=== PATIENT | male | born 1980 | race Caucasian/White ===

== ENCOUNTER 2024-05-24 12:49 | Emergency (ER) | payer BC, SELFPAY ==
[2024-05-24 13:20] VITALS: BP 134/85; PULSE 82; RESP 18; TEMP 36.6; O2SAT 98
--- NOTE | 2024-05-24 14:55 | ED.WOUNDLAC ---
HPI - Wound/Laceration General Chief Complaint: Wound/Laceration Stated Complaint: R middle finger lac Time Seen by Provider: 05/24/24 14:55 Focused HPI: This is a 44 year old male that presents to the ER for laceration to the left third finger at work. Reports bleeding and pain to the area. Unsure of last tetanus vaccine. Denies decreased ROM or numbness. GENERAL: Well-appearing, well-nourished, and in no acute distress. HEAD: Normocephalic, atraumatic. CHEST: Clear to auscultation. ?No respiratory distress. HEART: Regular rate and rhythm.? NEURO: ?Alert and oriented x3. Patient screened in triage and initial orders placed.? ?Additional care and disposition to be based upon?diagnostic testing and treatment. Review of Systems Review of Systems: All systems reviewed & are unremarkable except as noted in HPI and below Constitutional: Constitutional: Denies fever(s) Integumentary/Breasts: Comments: Reports laceration PMFSH Past Medical History Medical History (Updated 05/24/24 @ 15:10 by Tara Le PA-C) No active medical problems Social History Social History (Updated 05/24/24 @ 15:05 by Tara Le PA-C) Smoking status: Current every day smoker Exam Const: General: healthy appearing and no acute distress Skin: General skin exam: normal color Rashes: no rashes Wounds: wounds noted (Superficial abrasion to the left third finger) Extrem: Other: Normal ROM Course Course Emergency Course: Patient educated on further wound care Vital Signs Vital signs: Vital Signs Temperature 97.8 F 05/24/24 13:20 Pulse Rate 82 05/24/24 13:20 Respiratory Rate 18 05/24/24 13:20 Blood Pressure 134/85 05/24/24 13:20 Pulse Oximetry 98 05/24/24 13:20 Oxygen Delivery Room Air 05/24/24 13:20 Temperature 97.8 F 05/24/24 13:20 Pulse Rate 82 05/24/24 13:20 Respiratory Rate 18 05/24/24 13:20 Blood Pressure 134/85 05/24/24 13:20 Pulse Oximetry 98 05/24/24 13:20 Oxygen Delivery Room Air 05/24/24 13:20 Procedures Laceration Laceration 1: Date: 05/24/24 Time: 15:06 Site: hand Side (If applicable): left Size (cm): 0.5 Description: linear Depth: simple, single layer Pre-repair: irrigated ====== Skin Level ====== Skin layer closed with: steri strips ====== Subcutaneous Layer ====== ====== Muscle Layer ====== ====== Tendon Layer ====== Dressing: superficial laceration covered with steri strips and a bandage MDM - Wound/Laceration MDM Narrative Medical decision making narrative: Patient presents to the ER for superficial abrasion to the left third finger. Neurovascularly intact. Wound was cleansed and closed with steri strips. Updated on tetanus. Instructed on further wound care. He is to follow up with PCP as needed. Given warnings to return to the ER Differential Diagnosis Differential diagnosis: Likely laceration, abrasion and avulsion of skin Critical Care Time Critical Care Time Critical Care Time: No Discharge Plan Discharge Clinical Impression: Laceration Patient Disposition: Home, Self-Care Condition: Stable Instructions: Laceration (ED), Steristrips (ED) Additional Instructions: Return to the ER if you experience fever, redness and swelling of your finger, abnormal drainage, or any other symptoms that are concerning to you Let the water run over the wound in the shower. When steri strips falls off clean the area with soap and water daily and apply antibiotic ointment Follow up with your primary doctor for wound check if needed Follow-up/Referrals: PHYSICIAN NOT ON STAFF,NONSTAFF [Primary Care Provider] -
[2024-05-24] MEDS: TETANUS,DIPHTHERIA,AC PERTUSSIS ADULT (0.5 ML) BOOSTRIX IM (15:20)
== END 2024-05-24 15:39 | disposition home or self-care (01) ==
LOC: ANHED 15:14
PROVIDERS: Emergency Provider Physician Assistant
DX: S61.213A Laceration without foreign body of left middle finger without damage to nail, initial encounter (principal); W45.8XXA Other foreign body or object entering through skin, initial encounter; F17.200 Nicotine dependence, unspecified, uncomplicated; Z23 Encounter for immunization
CPT/HCPCS: 90471; 90715; 99282